=== PATIENT | male | born 1985 | race Caucasian/White ===

== ENCOUNTER → 2023-02-26 15:33 | Outpatient (BNVA) | payer OTHER, SELFPAY | PROVIDERS: PCP Internal Medicine; Visit Provider Anesthesiology | DX: G89.4 Chronic pain syndrome (principal); M47.816 Spondylosis without myelopathy or radiculopathy, lumbar region; G58.9 Mononeuropathy, unspecified; M79.18 Myalgia, other site | CPT/HCPCS: 20552; J2795; J3301 ==

== ENCOUNTER 2023-09-08 15:32 | Outpatient (AMB) | payer OTHER, SELFPAY ==
--- NOTE | 2023-09-08 15:35 | A.OFFVIS_ITS ---
Intake Vital Signs 09/08/23 15:54 Height 5 ft 9 in Weight 225 lb 4 oz BMI 33.3 BP 130/74 Blood Pressure Location Lt brachial Position Sitting Respiration 16 Pulse 81 Pulse Source Pulse Oximeter Pulse Oximetry (%) 97 Oxygen Delivery Method Room Air Intake Visit Reasons: Cont. Pain of Muscle, Fascia & Tendon of Abd Allergies No Known Allergies Allergy (Verified 09/08/23 15:57) HPI Cont. Pain of Muscle, Fascia & Tendon of Abd HPI Details Josh is very pleasant 37 years old gentleman who presents in my office with complains on pain in the left lower abdomen. He was injected last time with trigger point injection in the left flank in approximate position of the left ilioinguinal nerve, initially he had very good results however now the pain came back, he also reports that he has pain in the muscles in subcostal area. He reports that his brother was born with generalized muscle weakness, it sounds to me that he has some sort of a systemic disease, potentially muscular dystrophy. He requests me to repeat trigger point injection today. I instead recommend him to go to evaluation with Dr. Hayward our deputy court clerk. Prior: He reports that this pain started in about 15 months ago when he was lifting a book and the he made unconventional turn and felt severe pain in the left groin. He was examined by primary care physician and then after that by a surgeon he had several studies done including MRI of the abdomen and the CT scan of the abdomen which did not demonstrate any hernia or any significant abnormalities. According to the patient. He was referred to here by Dr. Espinosa from [facility] for evaluation of further treatment. 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 He is taking meloxicam and Tylenol for this pain. He also taking citalopram and lamotrigine. He reports history of fatigue. He received x-ray it could [place] on 11/22/2021 and 12/31/2021, he received MRI of the abdomen 04/17/2022. He was investigated with ultrasound in [facility]. He went for physical therapy to treat his pain he reports physical therapy helps his pain minimally he had 12 sessions and now he continues home exercise program for 40 minutes once a day. He had abdominal massage. It did not help his pain. He also reports lower back pain he reports that in the past he was under care of Dr. Espinosa who performed some steroid injections he remembers medial branch blocks, he never was offered RFA. He reports that the lower back pain is not related to the pain in the groin. He reports that the lower back pain might be aggravated but the pain in the abdomen seem to be calm and quiet and vice versa. MRI of the lumbar spine is quite non impressive. One level only L5-S1 attracts attention with arthritis. I do not believe L2-L3 disc bulge has any clinical significance since there is no spinal and Or foraminal stenosis. His past medical history significant for fatigue. He denies any surgical history. Social history he denies smoking cigarettes drinking alcohol he admits caffeinated beverages coffee and tea. He denies recreational drugs. Review of Systems Const All systems reviewed & are unremarkable except as noted in HPI and below ENT Reports Normal hearing present Neuro Reports Normal hearing present, Denies Abnormal speech present and Denies Sensory deficit (Neuro) Physical Exam Vital Signs: Last Vital Signs Pulse 81 09/08/23 15:54 Resp 16 09/08/23 15:54 BP 130/74 09/08/23 15:54 Pulse Ox 97 09/08/23 15:54 Oxygen Delivery Method Room Air 09/08/23 15:54 BMI result Body Mass Index 33.3 Const General: no acute distress Orientation/consciousness: patient oriented x3 Eyes General: appearance normal, both eyes and all related structures Pupils: Equal, round and reactive pupils present EOM: EOMs intact bilaterally Neck Neck: Yes full ROM Chest Chest palpation & inspection: normal inspection of the chest Resp Effort & Inspection: normal respiratory effort, able to speak in complete sentences, normal respiratory pattern, no audible wheezes and no cough Cardio Jugular venous distension: no JVD GI Other: Tenderness on palpation in left lower quadrant the area of the tenderness is very small. The abdomen is soft nontender nondistended no rebound and no guarding. Inspection: Yes normal to inspection Neuro General: patient oriented x3 and gait normal Cranial nerves: Yes CN's II-XII intact bilaterally, Yes Equal, round and reactive pupils present, Yes Normal hearing present and Yes Ability to bilaterally elevate shoulders present Speech: No Abnormal speech present Gait exam (Neuro): Normal gait present Motor exam (neuro): 5/5 motor strength present throughout Sensory Exam: No Sensory deficit (Neuro) Extrem General: No pedal edema Psych Speech and movement: Normal speech and movement present Affect: normal affect Attitude: cooperative Thought process: Normal thought process present Thought content: Normal thought content present Insight: Good insight present (Psych) Judgement: Good judgement present (Psych) Assessment & Plan Assessment & Plan (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 However today he reported pain returned into ilioinguinal area and he started also to feel pain in bilateral subcostal areas. Those pains are now spread more wide and the pains were aggravated after he was performing core strengthening exercises. I suspect this patient has some sort of a systemic disease, possibly some sort of a muscular dystrophy. Possibility exists that it is genetic because his brother was born with generalized muscular weakness which is chronic in his case. I will send this patient for evaluation with Dr. Hayward deputy court clerk. As of his lower back pain I do not believe bulging disc at L2-L3 has any clinical significance. Most likely his lower back pain is related to spondylosis of lumbar spine and facet joint arthropathy. I do not believe those to pains are linked together. On the MRI of the lumbar spine there is no nerve root compressions foraminal or central canal stenosis. Orders: Referrals 2 Rheumatology Referral G71.00 - Muscular dystrophy, unspecified Coding Level of Care Code Est Pt Level 3 (55460) Diagnoses Spondylosis of lumbar region without myelopathy or radiculopathy M47.816 Chronic pain syndrome G89.4 Mononeuropathy, unspecified G58.9 Myofascial pain syndrome M79.18 Muscular dystrophy G71.00
[2023-09-08 15:54] VITALS: BP 130/74; PULSE 81; RESP 16; O2SAT 97; BMI 33.3
== END 2023-09-08 16:22 | disposition home or self-care (01) ==
PROVIDERS: PCP Internal Medicine; Visit Provider Anesthesiology
DX: M47.816 Spondylosis without myelopathy or radiculopathy, lumbar region (principal); G89.4 Chronic pain syndrome; G58.9 Mononeuropathy, unspecified; M79.18 Myalgia, other site; G71.00 Muscular dystrophy, unspecified
CPT/HCPCS: 99213

== ENCOUNTER → 2023-09-08 15:32 | Outpatient (BNVA) | payer OTHER, SELFPAY | PROVIDERS: PCP Internal Medicine; Visit Provider Anesthesiology ==

== ENCOUNTER 2023-11-25 10:58 | Outpatient (AMB) | payer OTHER, SELFPAY ==
[2023-11-25 11:05] VITALS: BP 126/68; PULSE 93; TEMP 36.4; BMI 33.1
--- NOTE | 2023-11-25 11:05 | A.OFFVIS_ITS ---
Intake Vital Signs 11/25/23 11:05 Height 5 ft 9 in Weight 223 lb 15.834 oz BMI 33.1 BP 126/68 Blood Pressure Location Rt brachial Position Sitting Pulse 93 Pulse Source Pulse Oximeter Temp 97.6 F Temp Source Skin Intake Visit Reasons: Muscular dystrophy Intake Note: New patient presents today for consult, internally referred by pain mgmt Dr Mendoza. C/o pain in abdomen and lower back. Pain started approx 2020. Has tried PT, oral meds, injections and nerve blocks. Reports family h/o lupus in maternal aunt and younger brother with hypotonia. 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 Patient stated that he pulled a muscle in his left back in 2020 while lifting heavy boxes. He was evaluated by [facility] and was referred for physical therapy which did help. A few months after he pulled a muscle in his abdomen. He mentions getting a CT scan of the abdomen and MRI of the abdomen to rule out any hernia or injuries. States that those imaging studies were unremarkable. He was evaluated by pain management and received trigger point injection in his abdomen which was helpful. However he continued to have more widespread pains shooting pain in his subcostal areas and abdominal pain with any core strengthening exercises. He recently received cortisone injection by Dr. Espinosa in [facility] for right trochanteric bursa it believes it was helpful. He mentioned that his left elbow was dislocated when he was 2 to 3 years old. Does not recall the specifics. He does not have recurrent joint dislocations. Mentions that his younger brother, was told that he he had hypotonia at but did not require any specific treatment. And does not follow-up regularly with the specialist. He believes that his maternal aunt has lupus but he does not know the specifics. He denies any skin rashes. [facility] Surgical History No history of previous surgery Family History Mother No problems noted. 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, sells [employer] Review of Systems Const Reports fatigue and Reports weakness Musc Reports back pain, Reports arthralgias and Reports muscle weakness Skin/Breast Reports unusual bruising Neuro Reports weakness Endo Reports fatigue Physical Exam Vital Signs: Last Vital Signs Temp 97.6 F 11/25/23 11:05 Pulse 93 11/25/23 11:05 BP 126/68 11/25/23 11:05 BMI result Body Mass Index 33.1 Const General: cooperative, healthy appearing and comfortable Nutritional Appearance: obese Orientation/consciousness: patient oriented x3 Limitations: no limitations HEENT Head: Yes normocephalic and Yes atraumatic Mouth: moist mucous membranes Resp Effort & Inspection: normal respiratory effort and able to speak in complete sentences Auscultation: clear to auscultation bilaterally Cardio Rate: regular rate Rhythm: regular rhythm GI Other: Nonspecific abdominal tenderness to palpation Inspection: No distended Palpation (GI): Soft to palpation Skin Other: Few transverse scars on left wrist (history of self-mutilating behavior years ago) Neuro General: patient oriented x3 Extrem Other: No active synovitis Bilateral hyper flexible thumbs Proximal muscle strength 5/5 all 4 extremities. Negative straight leg raise test bilaterally Negative Fabere test bilaterally Assessment & Plan Assessment & Plan (1) Myofascial pain syndrome: Code(s): M79.18 - Myalgia, other site Plan: This is a 38-year-old male who presents for evaluation of diffuse pain and muscle pain with little activity. I do not see any signs suggestive of an autoimmune rheumatic disease. Patient has some hypermobility on exam. We discussed joint protection techniques. Patient can continue to follow-up with physiatry Plan I spent 30 minutes reviewing patient's chart, evaluating patient, counseling patient and documenting in the chart Coding Level of Care Code New Pt Level 3 (74883) Diagnoses Myofascial pain syndrome M79.18
== END 2023-11-25 11:53 | disposition home or self-care (01) ==
PROVIDERS: PCP Internal Medicine; Visit Provider Student in an Organized Health Care Education/Training Program
DX: M79.18 Myalgia, other site (principal)
CPT/HCPCS: 99203

== ENCOUNTER → 2023-11-25 10:58 | Outpatient (BNVA) | payer OTHER, SELFPAY | PROVIDERS: PCP Internal Medicine; Visit Provider Student in an Organized Health Care Education/Training Program ==

== ENCOUNTER 2023-11-26 14:27 | Outpatient (AMB) | payer OTHER, SELFPAY ==
--- NOTE | 2023-11-26 14:33 | A.OFFVIS_ITS ---
Intake Vital Signs 11/26/23 14:38 Height 5 ft 9 in Weight 223 lb BMI 32.9 BP 130/78 Blood Pressure Location Lt brachial Position Sitting Respiration 14 Pulse 83 Pulse Source Pulse Oximeter Pulse Oximetry (%) 98 Oxygen Delivery Method Room Air Intake Visit Reasons: Follow Up S/p Appointment in Rheumatology Allergies No Known Allergies Allergy (Verified 11/26/23 14:40) HPI HPI Comments History of Present Illness Details Josh is very pleasant 38 years old gentleman who is back in my office after the appointment with fishing rod marker. The rheumatological note finds no rheumatologic conditions of this patient. Hypermobility of the joints was found during that examination. 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 The most of the pain patient reports now in the subcostal area. He states that he was subject of liver function test and pancreatic enzyme tests and those tests did not demonstrate any parenchymal organ abnormality. He refers to the pain in subcostal area as the muscular pain, he feels that pain is superficial and not related to food intake. He reports that the pain is rather related to physical activities. I recommended the patient to consider consultation in [facility]. I will refer him to [facility] pain management so they can direct this patient to appropriate investigation facility to rule out inherited conditions such is muscular dystrophy and Ruben-Danlos syndrome. As of his lower back pain I offered him medial branch blocks to properly diagnose his pain and prepare him for the treatment however he said that the lower back pain is not on the foreground and he does not want to address this condition at this time. He is requesting a trial of the steroid medications. I told him that I can prescribe him Medrol pack taper to see how steroids would affect his pain however I would rather not place him on chronic steroid therapy unless there are serious reasons to do so. his brother was born with generalized muscle weakness, it sounds to me that he has some sort of a systemic disease, potentially muscular dystrophy. Prior: pain started in about 15 months ago when he was lifting a book and the he made unconventional turn and felt severe pain in the left groin. He was examined by primary care physician and then after that by a surgeon he had several studies done including MRI of the abdomen and the CT scan of the abdomen which did not demonstrate any hernia or any significant abnormalities. He was referred to here by Dr. Espinosa from [facility] for evaluation of further treatment. 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 He is taking meloxicam and Tylenol for this pain. He also taking citalopram and lamotrigine. He reports history of fatigue. He received x-ray it could [place] on 11/22/2021 and 12/31/2021, he received MRI of the abdomen 04/17/2022. He was investigated with ultrasound in [address] [place] [address]. He went for physical therapy to treat his pain he reports physical therapy helps his pain minimally he had 12 sessions and now he continues home exercise program for 40 minutes once a day. He had abdominal massage. It did not help his pain. He also reports lower back pain he reports that in the past he was under care of Dr. Espinosa who performed some steroid injections he remembers medial branch blocks, he never was offered RFA. He reports that the lower back pain is not related to the pain in the groin. He reports that the lower back pain might be aggravated but the pain in the abdomen seem to be calm and quiet and vice versa. MRI of the lumbar spine is quite non impressive. One level only L5-S1 attracts attention with arthritis. I do not believe L2-L3 disc bulge has any clinical significance since there is no spinal and Or foraminal stenosis. [facility] Surgical History No history of previous surgery Family History Mother No problems noted. 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, sells books Review of Systems Const Reports fatigue and Reports weakness ENT Reports Normal hearing present Musc Reports back pain, Reports arthralgias and Reports muscle weakness Skin/Breast Reports unusual bruising Neuro Reports Normal hearing present, Denies Abnormal speech present, Denies Sensory deficit (Neuro) and Reports weakness Endo Reports fatigue Physical Exam Vital Signs: Last Vital Signs Pulse 83 11/26/23 14:38 Resp 14 11/26/23 14:38 BP 130/78 11/26/23 14:38 Pulse Ox 98 11/26/23 14:38 Oxygen Delivery Method Room Air 11/26/23 14:38 BMI result Body Mass Index 32.9 Const General: no acute distress Orientation/consciousness: patient oriented x3 Eyes General: appearance normal, both eyes and all related structures Pupils: Equal, round and reactive pupils present EOM: EOMs intact bilaterally Neck Neck: Yes full ROM Chest Chest palpation & inspection: normal inspection of the chest Resp Effort & Inspection: normal respiratory effort, able to speak in complete sentences, normal respiratory pattern, no audible wheezes and no cough Cardio Jugular venous distension: no JVD GI Other: Tenderness on palpation in left lower quadrant the area of the tenderness is very small. The abdomen is soft nontender nondistended no rebound and no guarding. Inspection: Yes normal to inspection Neuro General: patient oriented x3 and gait normal Cranial nerves: Yes CN's II-XII intact bilaterally, Yes Equal, round and reactive pupils present, Yes Normal hearing present and Yes Ability to bilaterally elevate shoulders present Speech: No Abnormal speech present Gait exam (Neuro): Normal gait present Motor exam (neuro): 5/5 motor strength present throughout Sensory Exam: No Sensory deficit (Neuro) Extrem General: No pedal edema Psych Speech and movement: Normal speech and movement present Affect: normal affect Attitude: cooperative Thought process: Normal thought process present Thought content: Normal thought content present Insight: Good insight present (Psych) Judgement: Good judgement present (Psych) Assessment & Plan Assessment & Plan (1) Chronic pain syndrome: Code(s): G89.4 - Chronic pain syndrome (2) Myofascial pain syndrome: Code(s): M79.18 - Myalgia, other site (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 Potential diagnoses as below. He does not want to have diagnostic medial branch block. He wants to try oral steroids short course taper. The order was sent to his pharmacy as below. Orders: Referrals Pain Management Referral E88.9 - Metabolic disorder, unspecified, G73.7 - Myopathy in diseases classified elsewhere, G89.4 - Chronic pain syndrome, M79.18 - Myalgia, other site, Q79.60 - Ruben-Danlos syndrome, unspecified Medications: New methylprednisolone (Medrol (Yayo)) Take: 6 pills on the day 1, 5 pills on the day 2. , 4 pills on the day 3, 3 pills on the day 4. , 2 pills on the day 5, and 1 pill on the day 6. 4 mg PO QAM 6 days 21 ea 0RF Coding Level of Care Code Est Pt Level 3 (13838) Diagnoses Chronic pain syndrome G89.4 Myofascial pain syndrome M79.18 Ruben-Danlos syndrome Q79.60 Metabolic myopathy E88.9; G73.7 Spondylosis of lumbar region without myelopathy or radiculopathy M47.816 Mononeuropathy, unspecified G58.9 Muscular dystrophy G71.00
[2023-11-26 14:38] VITALS: BP 130/78; PULSE 83; RESP 14; O2SAT 98; BMI 32.9
== END 2023-11-26 15:08 | disposition home or self-care (01) ==
PROVIDERS: PCP Internal Medicine; Visit Provider Anesthesiology
DX: G89.4 Chronic pain syndrome (principal); M79.18 Myalgia, other site; Q79.60 Ehlers-Danlos syndrome, unspecified; E88.9 Metabolic disorder, unspecified; G73.7 Myopathy in diseases classified elsewhere; M47.816 Spondylosis without myelopathy or radiculopathy, lumbar region; G58.9 Mononeuropathy, unspecified; G71.00 Muscular dystrophy, unspecified
CPT/HCPCS: 99213

== ENCOUNTER → 2023-11-26 14:27 | Outpatient (BNVA) | payer OTHER, SELFPAY | PROVIDERS: PCP Internal Medicine; Visit Provider Anesthesiology ==

== ENCOUNTER 2024-01-29 13:48 | Outpatient (AMB) | payer OTHER, SELFPAY ==
--- NOTE | 2024-01-29 14:02 | MHC.OFFVIS ---
Intake Vital Signs 01/29/24 14:33 Height 5 ft 9 in Weight 214 lb BMI 31.6 BP 134/74 Blood Pressure Location Lt brachial Position Sitting Respiration 18 Pulse 102 H Pulse Source Pulse Oximeter Pulse Oximetry (%) 97 Oxygen Delivery Method Room Air Intake Visit Reasons: Per f/u to repeat trigger point inj Intake Note: Patient comes in for trigger point injection left inguinal area. Reports pain 4.5/10. Allergies No Known Allergies Allergy (Verified 01/29/24 14:36) HPI HPI Comments History of Present Illness Details Josh is very pleasant 38 years old gentleman who is back in my office for trigger point injection in the left inguinal area. See description as below. Family Services Assistant found no rheumatologic conditions of this patient. Hypermobility of the joints was found during that examination. 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 He is in the process to receive an appointment at [facility] to consider treatment at genetics disease disorders As of his lower back pain I offered him medial branch blocks to properly diagnose his pain and prepare him for the treatment however he said that the lower back pain is not on the foreground and he does not want to address this condition at this time. Prior: pain started in about 15 months ago when he was lifting a book and the he made unconventional turn and felt severe pain in the left groin. He was examined by primary care physician and then after that by a surgeon he had several studies done including MRI of the abdomen and the CT scan of the abdomen which did not demonstrate any hernia or any significant abnormalities. He was referred to here by Dr. Espinosa from [facility] for evaluation of further treatment. 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 He is taking meloxicam and Tylenol for this pain. He also taking citalopram and lamotrigine. He reports history of fatigue. He received x-ray it could [place] on 11/22/2021 and 12/31/2021, he received MRI of the abdomen 04/17/2022. He was investigated with ultrasound in [facility]. He went for physical therapy to treat his pain he reports physical therapy helps his pain minimally he had 12 sessions and now he continues home exercise program for 40 minutes once a day. He had abdominal massage. It did not help his pain. He also reports lower back pain he reports that in the past he was under care of Dr. Espinosa who performed some steroid injections he remembers medial branch blocks, he never was offered RFA. He reports that the lower back pain is not related to the pain in the groin. He reports that the lower back pain might be aggravated but the pain in the abdomen seem to be calm and quiet and vice versa. MRI of the lumbar spine is quite non impressive. One level only L5-S1 attracts attention with arthritis. I do not believe L2-L3 disc bulge has any clinical significance since there is no spinal and Or foraminal stenosis. [facility] Surgical History No history of previous surgery Family History Mother No problems noted. 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, sells books Review of Systems Const All systems reviewed & are unremarkable except as noted in HPI and below ENT Reports Normal hearing present Neuro Reports Normal hearing present, Denies Abnormal speech present and Denies Sensory deficit (Neuro) Physical Exam Vital Signs: Last Vital Signs Pulse 102 H 01/29/24 14:33 Resp 18 01/29/24 14:33 BP 134/74 01/29/24 14:33 Pulse Ox 97 01/29/24 14:33 Oxygen Delivery Method Room Air 01/29/24 14:33 BMI result Body Mass Index 31.6 Const General: no acute distress Orientation/consciousness: patient oriented x3 Eyes General: appearance normal, both eyes and all related structures Pupils: Equal, round and reactive pupils present EOM: EOMs intact bilaterally Neck Neck: Yes full ROM Chest Chest palpation & inspection: normal inspection of the chest Resp Effort & Inspection: normal respiratory effort, able to speak in complete sentences, normal respiratory pattern, no audible wheezes and no cough Cardio Jugular venous distension: no JVD GI Other: Tenderness on palpation in left lower quadrant the area of the tenderness is very small. The abdomen is soft nontender nondistended no rebound and no guarding. Inspection: Yes normal to inspection Neuro General: patient oriented x3 and gait normal Cranial nerves: Yes CN's II-XII intact bilaterally, Yes Equal, round and reactive pupils present, Yes Normal hearing present and Yes Ability to bilaterally elevate shoulders present Speech: No Abnormal speech present Gait exam (Neuro): Normal gait present Motor exam (neuro): 5/5 motor strength present throughout Sensory Exam: No Sensory deficit (Neuro) Extrem General: No pedal edema Psych Speech and movement: Normal speech and movement present Affect: normal affect Attitude: cooperative Thought process: Normal thought process present Thought content: Normal thought content present Insight: Good insight present (Psych) Judgement: Good judgement present (Psych) Assessment & Plan Assessment & Plan (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 The injection was performed in fan-like fashion in the area. The injectate was ropivacaine 0.5% mixed with Kenalog 40 mg. The patient tolerated procedure fairly well. Plan Most likely the diagnosis for this patient is ilioinguinal nerve entrapment however myofascial pain syndrome cannot be excluded. Next appointment is needed. Pain in the lower back can be addressed with trigger point injections versus medial branch blocks. 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 Coding Level of Care Code Est Pt Level 3 (10191) Procedure Only Diagnoses Spondylosis of lumbar region without myelopathy or radiculopathy M47.816 Chronic pain syndrome G89.4 Mononeuropathy, unspecified G58.9 Myofascial pain syndrome M79.18
[2024-01-29 14:33] VITALS: BP 134/74; PULSE 102; RESP 18; O2SAT 97; BMI 31.6
== END 2024-01-29 14:38 | disposition home or self-care (01) ==
PROVIDERS: PCP Internal Medicine; Visit Provider Anesthesiology
DX: M47.816 Spondylosis without myelopathy or radiculopathy, lumbar region (principal); G89.4 Chronic pain syndrome; G58.9 Mononeuropathy, unspecified; M79.18 Myalgia, other site
CPT/HCPCS: 20552; 99213

== ENCOUNTER → 2024-01-29 13:48 | Outpatient (BNVA) | payer OTHER, SELFPAY | PROVIDERS: PCP Internal Medicine; Visit Provider Anesthesiology | DX: G89.4 Chronic pain syndrome (principal); M47.816 Spondylosis without myelopathy or radiculopathy, lumbar region; G58.9 Mononeuropathy, unspecified; M79.18 Myalgia, other site | CPT/HCPCS: 20552; J0665; J3301 ==

== ENCOUNTER 2024-11-03 11:35 | Outpatient (AMB) | payer OTHER, SELFPAY ==
[2024-11-03 11:45] VITALS: BP 127/67; PULSE 76; O2SAT 98; BMI 29.7
--- NOTE | 2024-11-03 11:45 | MHC.OFFVIS ---
Vital Signs 11/03/24 11:45 Height 5 ft 9 in Weight 201 lb BMI 29.7 BP 127/67 Blood Pressure Location Rt brachial Position Sitting Pulse 76 Pulse Source Pulse Oximeter Pulse Oximetry (%) 98 Oxygen Delivery Method Room Air Intake Visit Reasons: Strain of Muscle, Fascia and Tendon of Abd Grails Web Application Developer Required: No Allergies No Known Allergies Allergy (Verified 11/03/24 11:46) Medication List - Last Reconciled 11/03/24 by Millicent Quiroga, MATHEMATICS DEPARTMENT CHAIR acetaminophen (Tylenol Extra Strength) 500 mg PO Q6H PRN citalopram 40 mg PO DAILY lamotrigine 50 mg PO DAILY meloxicam 15 mg PO DAILY methylprednisolone (Medrol (Yayo)) 4 mg PO QAM 6 days HPI Comments Details: Josh is back in my office after 8 months of absence. In the past I performed trigger point injections in the left inguinal area which was helpful for controlling his pain initially,on the 2nd time trigger point injection which was performed to him helped him as well over for the shorter period of time. He is requesting me to prescribe the gabapentin for him. He is requesting me to perform trigger point injection again. 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 We discussed possibility of further interventional pain management. While I do not mind to perform trigger point injections a relief his pain for several weeks only. After that patient tried to do extensive courses of physical therapy to treat his adductor and abductor muscles on the left lower extremity, he was considered to have systemic rheumatological condition but that was not supported by rheumatological evaluation. I offered the patient today to consider [facility] in the future, brochure was given about [facility]. Possibility of treating his pain with height thoracic placement of the leads with wide staggering would be modality treatment for this patient. Prior: very pleasant 38 years old gentleman who is back in my office for trigger point injection in the left inguinal area. See description as below. Bacteriologist Dairy found no rheumatologic conditions of this patient. Hypermobility of the joints was found during that examination. 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 He is in the process to receive an appointment at [facility] to consider treatment at genetics disease disorders As of his lower back pain I offered him medial branch blocks to properly diagnose his pain and prepare him for the treatment however he said that the lower back pain is not on the foreground and he does not want to address this condition at this time. Prior: pain started in about 15 months ago when he was lifting a book and the he made unconventional turn and felt severe pain in the left groin. He was examined by primary care physician and then after that by a surgeon he had several studies done including MRI of the abdomen and the CT scan of the abdomen which did not demonstrate any hernia or any significant abnormalities. He was referred to here by Dr. Espinosa from [facility] for evaluation of further treatment. 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 He is taking meloxicam and Tylenol for this pain. He also taking citalopram and lamotrigine. He reports history of fatigue. He received x-ray it could [place] on 11/22/2021 and 12/31/2021, he received MRI of the abdomen 04/17/2022. He was investigated with ultrasound in [address] [place] [address]. He went for physical therapy to treat his pain he reports physical therapy helps his pain minimally he had 12 sessions and now he continues home exercise program for 40 minutes once a day. He had abdominal massage. It did not help his pain. He also reports lower back pain he reports that in the past he was under care of Dr. Espinosa who performed some steroid injections he remembers medial branch blocks, he never was offered RFA. He reports that the lower back pain is not related to the pain in the groin. He reports that the lower back pain might be aggravated but the pain in the abdomen seem to be calm and quiet and vice versa. MRI of the lumbar spine is quite non impressive. One level only L5-S1 attracts attention with arthritis. I do not believe L2-L3 disc bulge has any clinical significance since there is no spinal and Or foraminal stenosis. [facility] Surgical History No history of previous surgery Family History Mother No problems noted. 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, sells books Review of Systems Const All systems reviewed & are unremarkable except as noted in HPI and below ENT Reports Normal hearing present Neuro Reports Normal hearing present, Denies Abnormal speech present and Denies Sensory deficit (Neuro) Physical Exam Vital Signs: Last Vital Signs Pulse 76 11/03/24 11:45 BP 127/67 11/03/24 11:45 Pulse Ox 98 11/03/24 11:45 Oxygen Delivery Method Room Air 11/03/24 11:45 BMI result Body Mass Index 29.7 Const General: no acute distress Orientation/consciousness: patient oriented x3 Eyes General: appearance normal, both eyes and all related structures Pupils: Equal, round and reactive pupils present EOM: EOMs intact bilaterally Neck Neck: Yes full ROM Chest Chest palpation & inspection: normal inspection of the chest Resp Effort & Inspection: normal respiratory effort, able to speak in complete sentences, normal respiratory pattern, no audible wheezes and no cough Cardio Jugular venous distension: no JVD GI Other: Tenderness on palpation in left lower quadrant the area of the tenderness is very small. The abdomen is soft nontender nondistended no rebound and no guarding. Inspection: Yes normal to inspection Neuro General: patient oriented x3 and gait normal Cranial nerves: Yes CN's II-XII intact bilaterally, Yes Equal, round and reactive pupils present, Yes Normal hearing present and Yes Ability to bilaterally elevate shoulders present Speech: No Abnormal speech present Gait exam (Neuro): Normal gait present Motor exam (neuro): 5/5 motor strength present throughout Sensory Exam: No Sensory deficit (Neuro) Extrem General: No pedal edema Psych Speech and movement: Normal speech and movement present Affect: normal affect Attitude: cooperative Thought process: Normal thought process present Thought content: Normal thought content present Insight: Good insight present (Psych) Judgement: Good judgement present (Psych) Assessment & Plan Assessment & Plan (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 She also was diagnose with Ruben-Danlos syndrome in [facility]. He requests me to prescribe him gabapentin. I prescribed 300 mg t.i.d. to help his pain. I also discussed continuation of trigger point injections as it was done before. Those work only for several weeks for him. I would consider [facility] if patient after reading brochure about [facility] would be interested in this procedure. I will schedule him for trigger point injection as soon as possible. Medications: New gabapentin 300 mg PO TID 30 days 90 caps 8RF Patient Instructions: I here by testify that I spent 32 minutes in conversation with this patient as well as evaluating his prior records evaluating his current diagnostic studies reports from outside institutions planning his care and organizing this note. Coding Level of Care Code Est Pt Level 4 (04031) Diagnoses Spondylosis of lumbar region without myelopathy or radiculopathy M47.816 Chronic pain syndrome G89.4 Mononeuropathy, unspecified G58.9 Myofascial pain syndrome M79.18
== END 2024-11-03 12:00 | disposition home or self-care (01) ==
PROVIDERS: PCP Internal Medicine; Visit Provider Anesthesiology
DX: M47.816 Spondylosis without myelopathy or radiculopathy, lumbar region (principal); G89.4 Chronic pain syndrome; G58.9 Mononeuropathy, unspecified; M79.18 Myalgia, other site
CPT/HCPCS: 99214

== ENCOUNTER → 2024-11-03 11:35 | Outpatient (BNVA) | payer OTHER, SELFPAY | PROVIDERS: PCP Internal Medicine; Visit Provider Anesthesiology ==

== ENCOUNTER 2024-11-10 11:32 | Outpatient (AMB) | payer OTHER, SELFPAY ==
[2024-11-10 11:37] VITALS: BP 118/66; PULSE 65; RESP 16; O2SAT 100; BMI 29.7
--- NOTE | 2024-11-10 11:37 | MHC.OFFVIS ---
Vital Signs 11/10/24 11:37 Height 5 ft 9 in Weight 201 lb BMI 29.7 BP 118/66 Blood Pressure Location Lt brachial Position Sitting Respiration 16 Pulse 65 Pulse Source Pulse Oximeter Pulse Oximetry (%) 100 Oxygen Delivery Method Room Air Intake Visit Reasons: Lft side trigger point inj Per dr Mendoza Allergies No Known Allergies Allergy (Verified 11/10/24 11:38) Medication List - Last Reconciled 11/10/24 by Savita Chang LPN acetaminophen (Tylenol Extra Strength) 500 mg PO Q6H PRN citalopram 40 mg PO DAILY gabapentin 300 mg PO TID 30 days lamotrigine 50 mg PO DAILY meloxicam 15 mg PO DAILY methylprednisolone (Medrol (Yayo)) 4 mg PO QAM 6 days PFSH Surgical History No history of previous surgery Family History Mother No problems noted. 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, sells [employer] Physical Exam Vital Signs: Last Vital Signs Pulse 65 11/10/24 11:37 Resp 16 11/10/24 11:37 BP 118/66 11/10/24 11:37 Pulse Ox 100 11/10/24 11:37 Oxygen Delivery Method Room Air 11/10/24 11:37 BMI result Body Mass Index 29.7 Office Procedures Therapeutic Injection Therapeutic Injection 35101-Qvidfnx Point Injection 1 or 2 sites All charges added?: Procedure code (CPT) selection complete Office Meds triamcinolone acetonide 40 mg/mL suspension for injection Performing Provider: Juan Antonio Mendoza MD Performing Location: [facility] Administered by: Juan Antonio Mendoza MD on 11/10/24 12:31 Dose Route Admin Location Dispensed Lot Number Expiration Date [facility] Hand Bobbin Cleaner 40 mg Infiltration 1 mL [id number] 05/26/26 [employer] bupivacaine (PF) 0.25 % (2.5 mg/mL) injection solution Performing Provider: Juan Antonio Mendoza MD Performing Location: [facility] Administered by: Juan Antonio Mendoza MD on 11/10/24 12:31 Dose Route Admin Location Dispensed Lot Number Expiration Date [place] Hand Bobbin Cleaner 10 mL Infiltration 10 mL Assessment & Plan Assessment & Plan (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: Code(s): M47.816 - Spondylosis without myelopathy or radiculopathy, lumbar region Category: Medical (2) Chronic pain syndrome: Code(s): G89.4 - Chronic pain syndrome Category: Medical (3) Mononeuropathy, unspecified: Code(s): G58.9 - Mononeuropathy, unspecified Category: Medical (4) Myofascial pain syndrome: Code(s): M79.18 - Myalgia, other site Category: Medical Plan: trigger point injection The patient was position flat on the examination table left lower quadrant was prepped with ChloraPrep trigger point was located, 25 gauge needle was inserted into the trigger point perpendicular to the skin not deeper than 1.5 cm. The injection was performed in fan-like fashion in the area. The injectate was ropivacaine 0.5% mixed with Kenalog 40 mg. The patient tolerated procedure fairly w Plan trigger point injection as above Orders: Orders AMB Trigger Point Injection Today G58.9 - Mononeuropathy, unspecified, G89.4 - Chronic pain syndrome, M79.18 - Myalgia, other site Coding Level of Care Code Procedure Only Diagnoses Spondylosis of lumbar region without myelopathy or radiculopathy M47.816 Chronic pain syndrome G89.4 Mononeuropathy, unspecified G58.9 Myofascial pain syndrome M79.18 CPT Codes Therapeutic Injection - Ther Injection 1: [id number]-[id number] Point Injection 1 or 2 sites ([id number])
== END 2024-11-10 11:57 | disposition home or self-care (01) ==
PROVIDERS: PCP Internal Medicine; Visit Provider Anesthesiology
DX: M79.18 Myalgia, other site (principal); M47.816 Spondylosis without myelopathy or radiculopathy, lumbar region; G89.4 Chronic pain syndrome; G58.9 Mononeuropathy, unspecified
CPT/HCPCS: 20552

== ENCOUNTER → 2024-11-10 11:32 | Outpatient (BNVA) | payer OTHER, SELFPAY | PROVIDERS: PCP Internal Medicine; Visit Provider Anesthesiology | DX: M79.18 Myalgia, other site (principal); M47.816 Spondylosis without myelopathy or radiculopathy, lumbar region; G89.4 Chronic pain syndrome; G58.9 Mononeuropathy, unspecified | CPT/HCPCS: 20552; J0665; J3300 ==

== ENCOUNTER 2024-11-24 14:59 | Outpatient (AMB) | payer OTHER, SELFPAY ==
--- NOTE | 2024-11-24 15:03 | MHC.OFFVIS ---
Vital Signs 11/24/24 15:09 Height 5 ft 9 in Weight 201 lb 6 oz BMI 29.7 BP 117/65 Blood Pressure Location Lt brachial Position Sitting Pulse 84 Pulse Source Pulse Oximeter Intake Visit Reasons: 2 Week Follow Up Intake Note: Pain today 01/03 Lockstitch Collar Setter Required: No Accompanied by: Self / Same As Patient Allergies No Known Allergies Allergy (Verified 11/24/24 15:09) HPI Comments Details: Josh is back in my office to review the results of the trigger point injection, he also is here for follow-up on initiation of gabapentin. While he reports that trigger point injection which was performed on his abdominal wall this time did not result in any pain improvement, gabapentin brings him some moderate relief off of his pain. He denies side effects of the gabapentin medication, he denies suicidal ideations. I will continue this medication. He also complains today on lower back pain physical exam was performed pain according to the patient is a projection of the L5-S1 pain is exacerbated by prolonged walking and prolonged standing, Obed test is negative for pain increase, loading test is negative for pain increase. Flexing forward aggravates the pain. In the past he had MRI done at [facility] I requested him to bring me the disc of that MRI so I can examine if there are any Modic type changes in his lumbar spine. Unfortunately the report of the radiologist which we have in the chart does not describe any weight changes. Last time he was offered [facility] brochure to read, he is not eager to consider this way of treatment. I recommended him to continue gabapentin, he will visit us as needed. Prior: In the past I performed trigger point injections in the left inguinal area which was helpful for controlling his pain initially,on the 2nd time trigger point injection which was performed to him helped him as well over for the shorter period of time. 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 [employer] [employer] Brusher found no rheumatologic conditions of this patient. Hypermobility of the joints was found during that examination. 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 He was examined by primary care physician and then after that by a surgeon he had several studies done including MRI of the abdomen and the CT scan of the abdomen which did not demonstrate any hernia or any significant abnormalities. He was referred to here by Dr. Espinosa from [facility] for evaluation of further treatment. 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 He is taking meloxicam and Tylenol for this pain. He also taking citalopram and lamotrigine. He reports history of fatigue. He received x-ray it could [place] on 11/22/2021 and 12/31/2021, he received MRI of the abdomen 04/17/2022. He was investigated with ultrasound in [address] [place] [address]. He went for physical therapy to treat his pain he reports physical therapy helps his pain minimally he had 12 sessions and now he continues home exercise program for 40 minutes once a day. He had abdominal massage. It did not help his pain. He also reports lower back pain he reports that in the past he was under care of Dr. Espinosa who performed some steroid injections he remembers medial branch blocks, he never was offered RFA. He reports that the lower back pain is not related to the pain in the groin. He reports that the lower back pain might be aggravated but the pain in the abdomen seem to be calm and quiet and vice versa. MRI of the lumbar spine is quite non impressive. One level only L5-S1 attracts attention with arthritis. I do not believe L2-L3 disc bulge has any clinical significance since there is no spinal and Or foraminal stenosis. [facility] Surgical History No history of previous surgery Family History Mother No problems noted. 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, sells books Review of Systems Const All systems reviewed & are unremarkable except as noted in HPI and below ENT Reports Normal hearing present Neuro Reports Normal hearing present, Denies Abnormal speech present and Denies Sensory deficit (Neuro) Physical Exam Vital Signs: Last Vital Signs Pulse 84 11/24/24 15:09 BP 117/65 11/24/24 15:09 BMI result Body Mass Index 29.7 Const General: no acute distress Orientation/consciousness: patient oriented x3 Eyes General: appearance normal, both eyes and all related structures Pupils: Equal, round and reactive pupils present EOM: EOMs intact bilaterally Neck Neck: Yes full ROM Chest Chest palpation & inspection: normal inspection of the chest Resp Effort & Inspection: normal respiratory effort, able to speak in complete sentences, normal respiratory pattern, no audible wheezes and no cough Cardio Jugular venous distension: no JVD GI Other: Tenderness on palpation in left lower quadrant the area of the tenderness is very small. The abdomen is soft nontender nondistended no rebound and no guarding. Inspection: Yes normal to inspection Neuro General: patient oriented x3 and gait normal Cranial nerves: Yes CN's II-XII intact bilaterally, Yes Equal, round and reactive pupils present, Yes Normal hearing present and Yes Ability to bilaterally elevate shoulders present Speech: No Abnormal speech present Gait exam (Neuro): Normal gait present Motor exam (neuro): 5/5 motor strength present throughout Sensory Exam: No Sensory deficit (Neuro) Extrem General: No pedal edema Psych Speech and movement: Normal speech and movement present Affect: normal affect Attitude: cooperative Thought process: Normal thought process present Thought content: Normal thought content present Insight: Good insight present (Psych) Judgement: Good judgement present (Psych) Assessment & Plan Assessment & Plan (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 Gabapentin gave him no side effects and moderate pain relief. I will continue this medication. 2. He read the brochure Nevnatal[facility], he does not want spinal cord stimulator. 3. Low back pain he had medial branch blocks in the past versus facet joint injections with steroids with minimal to moderate results. 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 I requested the patient to bring me MRI disc from [facility]. 4. Trigger point injection he received 2 weeks ago was not effective to control his pain unlike the trigger point injection he received 8 months ago. Patient Instructions: I here by testify that I spent 35 minutes in conversation with this patient as well as planning his care and organizing this note. Coding Level of Care Code Est Pt Level 4 (67229) Diagnoses Spondylosis of lumbar region without myelopathy or radiculopathy M47.816 Chronic pain syndrome G89.4 Mononeuropathy, unspecified G58.9 Myofascial pain syndrome M79.18
[2024-11-24 15:09] VITALS: BP 117/65; PULSE 84; BMI 29.7
--- OUTSIDE RECORDS SUMMARY | 2024-11-24 17:06 | XMS_ITS | Referral Summary ---
Author Organization [facility] Address [address] [place] [address] Care Team Providers Care Pharmacology Associate Name Role Phone Jolene Brand Primary Care Provider [phone] Allergies No known active allergies Medications citalopram (CeleXA) 40 mg tablet Take 40 mg by mouth once a day. 10/28/2021 Active lamoTRIgine (LaMICtal XR) 50 mg tablet extended release 24hr Take 50 mg by mouth daily. Active methylPREDNISol one (MEDROL DOSEPACK) 4 mg tablet TAKE 6 TABLETS ON DAY 1 DIRECTED ON PACKAGE AND DECREASE BY 1 TAB EACH DAY FOR A TOTAL OF 6 DAYS 05/30/2022 Active acetaminophen (TYLENOL) 500 mg tablet Take 1,000 mg by mouth every 6 hours as needed for pain. Active meloxicam (MOBIC) 15 mg tablet Take 15 mg by mouth once a day. Active Active Problems Problem Noted Date Diagnosed Date Myofascial pain 06/10/2022 Left lower quadrant pain 02/15/2022 Social History Tobacco Use Types Packs/Day Years Used Date Smoking Tobacco: Never Smokeless Tobacco: Never Tobacco Cessation:Counseling Given: Yes Sex and Gender Information Value Date Recorded Sex Assigned at Male 01/21/2022 3:10 PM EDT Legal Sex Male 5:01 AM EDT Gender Identity Male 01/21/2022 3:10 PM EDT Sexual Orientation Straight 01/21/2022 3: 10 PM EDT Last Filed Vital Signs Vital Sign Reading Time Taken Comments Blood Pressure 113/70 06/11/2024 11:19 AM EDT Pulse 78 06/11/2024 11:19 AM EDT Temperature 36.3 ??C (97.4 ??F) 06/11/2024 11:19 AM E DT Respiratory Rate - - Oxygen Saturation 100% 06/11/2024 11:19 AM EDT Inhaled Oxygen Concentration - - Weight 89.7 kg (197 lb 12 oz) 06/11/2024 11:19 A M EDT Height - - Body Mass Index - - Plan of Treatment Not on file Insurance [facility] Care Teams Pharmacology Associate Relationship Specialty Start Date End Date Jolene Brand [address] [place] [address], [address] [place] [id number] PCP - General Internal Medicine 01/17/22
--- OUTSIDE RECORDS SUMMARY | 2024-11-24 17:06 | XMS_ITS | Clinical Summary ---
Author Organization [facility] Address [address] [place] [address] Care Team Providers Care Securities Analyst Name Role Phone Jolene Brand Primary Care Provider [phone] Allergies No known active allergies Medications citalopram [...] Mass Index - - Plan of Treatment Health Maintenance Due Date Last Done Comments HIV Screening 1984 Hepatitis C Screening 1984 Varicella Vaccines (1 of 2 - 13+ 2-dose series) 1997 COVID-19 Vaccine ( season) 2024 11/02/2021, 02/24/2021, 02/03/2021 Influenza Vaccine (#1) 2024 2, 11/19/2021, 09/24/2005 Alcohol/Substance Use Screening 10/27/2024 Depression Screening and Follow-Up 10/27/2024 Social Drivers of Health Annual Screening 10/27/2024 DTaP,Tdap,and Td Vaccines (9 - Td or Tdap) 07/19/2031 07/19/2021, 06/24/2008, 06/26/1998, Additional history exists RSV Vaccine (60+ years old and patients) (1 - 1-dose 75+ series) 2059 Hepatitis B Vaccines Completed 08/30/1996, 02/05/1996, 11/13/1995 Pneumococcal Vaccine: Pediatric (0-5 Years) and At-Risk Patients (6-64 Years) Aged Out No longer eligible based on patient's age to complete this topic Insurance [facility] Care Teams Securities Analyst Relationship Specialty Start Date End Date Jolene Brand [address] [place] [address], [address] [place] [address] PCP - General Internal Medicine 01/17/22
--- OUTSIDE RECORDS SUMMARY | 2024-11-24 17:06 | XMS_ITS | Encounter Summary ---
Author Organization [facility] Address [address] [place] [address] Care Team Providers Care Technologies Division Chair Name Role Phone Jolene Brand Primary Care Provider [phone] Encounter Details Date Type Department Care Team (Late st Contact Info) Description 02/22/2022 Orders Only [facility] XRay [address] [place] [address] Phyllis Britton MD [address] [place] [address] Social History Tobacco Use Types Packs/Day Years Used Date Smoking Tobacco: Never Smokeless Tobacco: Never Sex and Gender Information Value Date Recorded Sex Assigned at Male 01/21/2022 3:10 PM EDT Legal Sex Male 5:01 AM EDT Gender Identity Male 01/21/2022 3:10 PM EDT Sexual Orientation Straight 01/21/2022 3: 10 PM EDT documented as of this encounter Plan of Treatment Not on file documented as of this encounter Visit Diagnoses Not on filedocumented in this encounter Care Teams Technologies Division Chair Relationship Specialty Start Date End Date Jolene Brand [address] [place] [address], [address] [place] [address] PCP - General Internal Medicine 01/17/22 documented as of this encounter
== END 2024-11-24 15:26 | disposition home or self-care (01) ==
PROVIDERS: PCP Internal Medicine; Visit Provider Anesthesiology
DX: M47.816 Spondylosis without myelopathy or radiculopathy, lumbar region (principal); G89.4 Chronic pain syndrome; G58.9 Mononeuropathy, unspecified; M79.18 Myalgia, other site
CPT/HCPCS: 99214

== ENCOUNTER → 2024-11-24 14:59 | Outpatient (BNVA) | payer OTHER, SELFPAY | PROVIDERS: PCP Internal Medicine; Visit Provider Anesthesiology ==